=== PATIENT | female | born 1940 | race African-American/Black ===

== ENCOUNTER 2017-03-12 22:06 | Observation (INO) | payer OTHER ==
--- NOTE | ~2017-03-12 | HP ---
History And Physical [address] [id number] [facility] [place]. 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 Last seen in 2012. CHIEF COMPLAINT: Chest pain to back with shortness of breath. HISTORY OF PRESENT ILLNESS: Very pleasant, 76-year-old, black female with no known history of CAD, previously followed by Dr. Paul for most likely hypertension. The patient states that on 03/12 in the morning she developed central chest pain that radiated to her back, described as a dull ache. She reports having had a cough for approximately one week. She reports associated shortness of breath. Denies nausea, diaphoresis, dizziness, or belching. At its most intense, the chest pain was a 5/10. At time of interview in the [facility], she is pain free. She states the episode lasted all day. It was constant and resolved prior to coming to the hospital. She did not take any additional medications for the discomfort. Her daughter drove her here. She also reports some episodes of fatigue and shortness of breath for an uncertain length of time. The patient reports a personal history of TIA with no known deficit although she does report some balance issues, history of PE twice. Denies history of KS, DVT or stroke. The patient denies any recent fever or chills. No palpitations. No syncopal episodes. Denies PND or orthopnea. Sleeps on two pillows. PAST MEDICAL HISTORY: 1. Dyslipidemia. 2. Prediabetic. 3. Seizure disorder most recently 3 years ago following brain surgery. 4. Migraine headaches. 5. Denies hypertension. 6. History of PE twice. 7. History of breast cancer with bilateral mastectomies and radiation therapy. 8. History of ovarian cancer treated with chemotherapy and hysterectomy. 9. Positive family history for early CAD. PAST SURGICAL HISTORY: 1. Brain aneurysm clipped twice, 1959 and 2013. 2. Cholecystectomy. 3. Hysterectomy. 4. Two C-sections. 5. Sinus surgery. 6. UPPP. 7. Cataract surgery. 8. Left ankle repair. SOCIAL HISTORY: She is with two children. 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 Does not have an exercise routine. Resides with her daughter and does minor house work. History And Physical [address] [place]. [address] NAME: SARAH BETH MORENO : 42 STATUS : ADM Fazal PAT#: [id number] AGE: 76 ADM/REG DATE : 03/12/17 MR#: [id number] REPORT SERV DATE: 03/13/17 DICTATED BY: MADELYN GUIDO DATE: 03/13/17 REPORT STATUS : Draft TRANSCRIBED BY: ANDRE DATE: 03/13/17 Denies tobacco, alcohol, or illicit's. FAMILY HISTORY: Mother and father of cancer. Multiple sisters of cancer. Brother of a heart attack in his 60s. The patient is one of 12 children. REVIEW OF SYSTEMS: A 14-point review of systems performed, significant for HPI including INR checked last month at Dr. Garcia's office, reportedly 2+. Otherwise, complete review of systems obtained and negative. ALLERGIES: PENICILLIN, SYNCOPE. LATEX, ANAPHYLAXIS. KIWI, THROAT CLOSES. HOME MEDICATIONS: Vitamin D3 2000 units Friday, Friday, Friday; Keppra 1250 mg twice daily; Remeron 15 mg at bedtime; fish oil 1000 mg daily; Systane p.r.n.; simvastatin 40 mg nightly; Topamax 25 mg daily; PreserVision twice daily; Jantoven 2.5 mg daily. PHYSICAL EXAMINATION: VITAL SIGNS: Bilateral blood pressures on arrival, right 151/69, left 177/70, this morning 131/60, pulse 74, respirations 16, temperature 97.8, O2 saturation 95% on room air, height 5 feet 6 inches, weight 151 pounds, BMI 24. GENERAL: Cooperative, in no apparent distress. Some memory issues for specifics regarding medical history. HEENT: Pupils 2 mm, sclera nonicteric. Nares patent. Moist mucous membranes. No xanthelasma. NECK: Trachea midline, no thyromegaly. No JVD. No bruits. LYMPH: No cervical lymphadenopathy. No supraclavicular lymphadenopathy. RESPIRATORY: Unlabored respirations. Breath sounds clear bilaterally to posterior auscultation. No wheezes or rhonchi. CARDIOVASCULAR: Regular rate. No murmur, rub or gallop appreciated. Extremities, trace pretibial edema. Pulses 2+ bilaterally. ABDOMEN: Soft, nontender, nondistended, normal bowel sounds auscultated throughout. No organomegaly. SKIN: Warm, dry extremities. No pallor, or cyanosis. PSYCHIATRIC: Appropriate affect. Alert, oriented x3. LABORATORY DATA: Troponin less than 0.02 x4. Potassium 3.7, BUN 17, creatinine 0.81, glucose 92, magnesium 1.8. WBC 9.1, hemoglobin 12.9, hematocrit 38.2, platelet count 209,000. PT 29.3, INR 2.8. D-dimer less than 0.27. EKG, sinus rhythm, LVH, anterior T- waves. Echo, 03/2013: EF 55-60%. Mild to moderate aortic insufficiency with aortic sclerosis. MPI, 01/2012: Roberto stage 2, 5:01 minutes, 7 METS. Inferior infarct. Borderline. Infarct ischemia. Cath, 2011 ([facility]): No significant CAD, EF 60%. History And Physical [address] [address] NAME: SARAH BETH MORENO : 42 STATUS : ADM Fazal PAT#: [id number] AGE: 76 ADM/REG DATE : 03/12/17 MR#: [id number] REPORT SERV DATE: 03/13/17 DICTATED BY: MADELYN GUIDO DATE: 03/13/17 REPORT STATUS : Draft TRANSCRIBED BY: ANDRE DATE: 03/13/17 ASSESSMENT AND PLAN: 1. Chest pain, now resolved with atypical features. The patient has been observed in the CP[facility] overnight to rule out myocardial infarction with serial enzymes and serial EKGs and held n.p.o. We will proceed with cardiac PET today secondary to bilateral mastectomies and patient's reported balance issues. The patient will be discharged home if low risk, no ischemia. If anything suggestive of ischemia, Cardiology referral will be initiated. Otherwise, the patient will be asked to follow up with her PCP and we will arrange a new patient appointment with Dr. Paul to be re-established with him. 2. Dyslipidemia. Continue statin. 3. History of pulmonary embolism twice with shortness of breath. D-dimer less than 0.27. INR therapeutic at 2.8. No missed doses of Jantoven, doubt pulmonary embolism. We will check echo given previous aortic insufficiency in 2012. Follow up with Cardiology. 4. Fatigue. Check a TSH and free T4. QUYEN/MODL JERMAINE Guzmán, IN MOLD [employer]ATER-BC / [id number] CC: JERMAINE Guzmán, IN [employer]-BC Leidy Garcia M.D. Otf Paul M.D.
[2017-03-12 19:56] LABS: BASOPHILS 0.3 %; BASOPHILS ABSOLUTE 0.03 10/3/uL (0.0-0.16); EOSINOPHILS 1.5 %; EOSINOPHILS ABSOLUTE 0.14 10/3/uL (0.0-0.53); HEMATOCRIT 38.2 % (36.0-48.0); HEMOGLOBIN 12.9 g/dL (12.0-16.0); IMMATURE GRANULOCYTES 0.1 %; IMMATURE GRANULOCYTES ABSOLUTE 0.01 10/3/uL (0.0-0.11); LYMPHOCYTES 45.2 %; MANUAL DIFF NO %; MEAN CORPUS HGB CONC 33.8 g/dL (32.0-36.0); MEAN CORPUSCULAR VOLUME 91.8 fL (80-100); MEAN PLATELET VOLUME 9.6 fL (9.2-13.0); MONOCYTES 7.4 %; MONOCYTES ABSOLUTE 0.67 10/3/uL (0.21-1.20); NEUTROPHILS 45.5 %; NEUTROPHILS ABSOLUTE 4.13 10/3/uL (2.02-8.40); PLATELET COUNT 209 10/3/uL (150-400); RBC DISTRIBUTION WIDTH 13.3 % (12.0-16.0); RED CELL COUNT 4.16 10/6/uL (4.0-5.6); WHITE BLOOD CELLS 9.1 10/3/uL (4.5-10.5)
[2017-03-12 20:05] LABS: INTERNATIONAL NORMAL RATI 2.8 UNITS (-); PARTIAL THROMBO TIME 45.7 SEC (22.5-37.2); PROTIME (NOT ORD) 29.3 SEC (12.0-14.5)
[2017-03-12 20:10] LABS: BUN (BLOOD UREA NITROGEN) 17 MG/DL (6-23); CALCIUM, SERUM 9.1 MG/DL (8.5-10.4); CHEST PAIN PROFILE TAT 0 Hrs 20 Mins; CHLORIDE, SERUM 107 MMOL/L (96-112); CO2 (CARBON DIOXIDE) 29 MMOL/L (24-34); CREATININE 0.81 MG/DL (0.55-1.02); GFR AFRICAN AMERICAN 82 ML/MIN (>=60); GFR NON AFRICAN AMERICAN 71 ML/MIN (>=60); GLUCOSE, SERUM 92 MG/DL (60-99); POTASSIUM, SERUM 3.8 MMOL/L (3.5-5.3); SODIUM, SERUM 144 MMOL/L (135-148); TROPONIN I <0.02 NG/ML (<0.05)
[2017-03-12 21:16] LABS: D-DIMER QUANTITATIVE < 0.27 ug/mLFEU (< 0.50)
[~2017-03-12 22:06] MED LIST: ALLEGRA180 PO; C1 PO; CO Q-10100 MG PO; COUMADIN3 MG PO; DEPAKOT500 PO; FIORINALC PO; FISH OIL1200 MG PO; HALF81 PO; HYZAAR 100/25 T1 TAB PO; HYZAAR 50/12.51 TAB PO; LORTAB10 PO; MULTIVITAMI1 PO; VITAMIN B-121000 MC1 SL; ZOCOR20 PO
[2017-03-12] MEDS ORDERED: JANTOVEN2.5 MG PO (22:54)
[2017-03-12] MEDS ORDERED: KEPPRA500 PO (22:54)
[2017-03-12] MEDS ORDERED: REM15 PO (22:55)
[2017-03-12] MEDS ORDERED: VITAMIN D31000 UNIT PO (22:55)
[2017-03-12] MEDS ORDERED: TOPAMAX25 PO (22:55)
[2017-03-12] MEDS ORDERED: FISH-EPA1000 MG PO (22:55)
[2017-03-12] MEDS ORDERED: ZOCOR40 PO (22:56)
[2017-03-12] MEDS ORDERED: SYSTANE ULTR OPH (22:56)
[2017-03-12] MEDS ORDERED: PRESERVISION A1 EAC1 PO (22:56)
[2017-03-13 05:33] LABS: POTASSIUM, SERUM 3.7 MMOL/L (3.5-5.3); TROPONIN I <0.02 NG/ML (<0.05)
[2017-03-13 12:38] LABS: FREE T4 1.09 NG/DL (0.76-1.46)
[2017-03-13] MEDS ORDERED: COZ25 PO (17:07)
== END 2017-03-13 17:32 | disposition home or self-care (01) ==
LOC: ER 22:06 → CDU1 22:19
PROVIDERS: Clinical Nurse Specialist; Emergency Medicine
DX: R07.9 Chest pain, unspecified (principal); E78.5 Hyperlipidemia, unspecified; R73.03 Prediabetes; G43.909 Migraine, unspecified, not intractable, without status migrainosus; Z90.710 Acquired absence of both cervix and uterus; Z85.3 Personal history of malignant neoplasm of breast; Z90.49 Acquired absence of other specified parts of digestive tract; Z88.0 Allergy status to penicillin; Z91.040 Latex allergy status; Z86.711 Personal history of pulmonary embolism; Z79.899 Other long term (current) drug therapy; Z79.01 Long term (current) use of anticoagulants
CPT/HCPCS: 71020; 78492; 80048; 83735; 84132; 84439; 84443; 84484; 85025; 85379; 85610; 85730; 93005; 93017; 93306; 99285; A9270-GY; A9555; G0378; J2785